=== PATIENT | female | born 1935 | race Caucasian/White ===

== ENCOUNTER 2021-11-30 18:51 | Emergency (ER) | payer OTHER ==
[~2021-11-30] VITALS: Ht 152.4 cm; Wt 53.1 kg
[~2021-11-30 18:51] MED LIST: ASPI-612 RC; CALC-1062 PO; CHLO25TA2 PO; CHOL10005 PO; EZET1TAB31 PO; FERR325T28 PO; HYDR50TA68 PO; LEVO50TA PO; LEVO75TA PO; LORA-258 PO; METO50TA16 PO; NITR0.4T SL; POTA20TA83 PO; TRAM50TA PO; VITA1CAP PO
--- NOTE | 2021-11-30 19:00 | NUR ---
Patient was [facility]IB [facility] for [facility] since 0600 this morning. patient arrived with 92% 02 saturation. Patient denies CP, a/ox3
[2021-11-30] MEDS ORDERED: levoFLOXacin 750MG/D5W 150 ML IV ONE ×2 (19:30→19:39)
[2021-11-30 20:06] LABS: HEMATOCRIT 22.3 % (31.2-41.9); MEAN CORPUSCULAR HEMOGLOBIN 28.9 uug (24.7-32.8); MEAN CORPUSCULAR VOLUME 85.3 fL (75.5-95.3); PLATELET COUNT (AUTO) 221 K/uL (179-408)
[2021-11-30] MEDS ORDERED: VANCOMYCIN IV 200 ML ONE (20:11)
[2021-11-30] MEDS ORDERED: CEFTRIAXONE /D5W 50ML IVPB **ER PYXIS IV ONE (20:12)
[2021-11-30 20:14] LABS: CARBON DIOXIDE 23 mmol/L (21-32); CHLORIDE 104 mmol/L (98-107); CREATININE 1.4 mg/dL (0.6-1.3); GLUCOSE 137 mg/dL (74-106); UREA NITROGEN, BLOOD 30 mg/dL (7-18)
[2021-11-30] MEDS ORDERED: VANCOMYCIN IV 1,000 MG in IV DEXTROSE 5% 250 ML IV ONE (20:15)
[2021-11-30] MEDS ORDERED: CEFTRIAXONE 1 G in IV DEXTROSE 5% 50 ML IV ONE (20:15)
[2021-11-30 20:23] LABS: ALANINE AMINOTRANSFERASE 27 U/L (14-59); ALKALINE PHOSPHATASE 82 U/L (50-136); ASPARTATE AMINOTRANSFERASE 18 U/L (15-37); BILIRUBIN,DIRECT 0.3 mg/dL (0.0-0.2); BILIRUBIN,TOTAL 1.1 mg/dL (0.2-1.0); TOTAL PROTEIN, SERUM 6.5 g/dL (6.4-8.2)
[2021-11-30 20:43] LABS: ABG BASE EXCESS -1.8 mmol/L; ABG PH 7.441 (7.350-7.450); ABG PO2 162.4 mmHg (75.0-100.0); ABG SITE RIGHT RADIAL; COHb 0.1 % (0.5-1.5); MetHb 0.2 % (0.0-1.5); O2Hb 98.6 % (94.0-97.0); VENT MODE Nasal Cannula
--- NOTE | 2021-11-30 20:43 | NUR ---
called [facility]
[2021-11-30] MEDS ORDERED: FUROSEMIDE 20 MG/2 ML VIAL IV ONE (20:45)
[2021-11-30] MEDS ORDERED: hydrALAZINE HCL 20 MG/1 ML VIAL IV ONE (20:45)
[2021-11-30] MEDS ORDERED: hydrALAZINE HCL 20 MG/1 ML VIAL ONE (20:53)
[2021-11-30] MEDS ORDERED: FUROSEMIDE 20 MG/2 ML VIAL ONE (20:53)
[2021-11-30] MEDS ORDERED: NITROGLYCERIN OINT 1 GM PACKET TP ONE ×2 (23:41→23:45)
[2021-11-30 23:45] VITALS: BP 183/64
--- NOTE | 2021-12-01 00:20 | NUR ---
[facility] called back. Spoke with Jaleel for updates. [facility] ETA 0100. Patient will go to room [address]
--- NOTE | 2021-12-01 00:33 | NUR ---
Report given to Chica RODRIGUEZ
--- NOTE | 2021-12-01 01:15 | NUR ---
Patient Tranfers to outside Facility via [facility] ambulance Physician: Dr Childers Location: [facility]
== END 2021-12-01 01:15 | disposition hospice, inpatient (51) ==
LOC: ER 18:55
DX: J18.9 Pneumonia, unspecified organism (principal); J81.1 Chronic pulmonary edema; R94.31 Abnormal electrocardiogram [ECG] [EKG]; I12.9 Hypertensive chronic kidney disease with stage 1 through stage 4 chronic kidney disease, or unspecified chronic kidney disease; N18.9 Chronic kidney disease, unspecified; Z86.79 Personal history of other diseases of the circulatory system; Z88.8 Allergy status to other drugs, medicaments and biological substances; Z88.6 Allergy status to analgesic agent; Z88.5 Allergy status to narcotic agent; Z91.013 Allergy to seafood; Z91.018 Allergy to other foods; Z79.82 Long term (current) use of aspirin; Z79.899 Other long term (current) drug therapy; Z20.822 Contact with and (suspected) exposure to COVID-19
CPT/HCPCS: 36415; 36600 ×2; 71045; 80048; 80076; 83605; 83880; 84145; 84484 ×3; 85025; 85379; 87040 ×2; 87070; 87400; 87426; 93005 ×2; 96365; 96367; 96375; 99285; J0360; J0696; J1940; J1956; J3370; A4663